=== PATIENT | male | born 1980 | race Caucasian/White ===

== ENCOUNTER 2022-09-14 01:39 | Inpatient (IN) | payer OTHER ==
--- NOTE | 2022-09-14 02:57 | EDPHYS ---
Physician Documentation [facility] Name: Moe Robertson Age: 41 yrs Sex: Male : 1980 Arrival Date: 09/14/2022 Time: 01:45 Bed 8 Private MD: Todd Higgins T ED Physician Raheem Chaudhari HPI: 09/14 02:38 This 41 yrs old Male presents to ER via Ambulatory with complaints of Back Pain, MUSCLE pm1 TENSION, Chest Tightness. 02:38 The patient or guardian reports chest pain that is located primarily in the anterior pm1 aspect of right upper chest, anterior aspect of left upper chest and mid-sternal area. The pain radiates to back. Associated signs and symptoms: Pertinent negatives: abdominal pain, dizziness, headache, nausea, shortness of breath, vomiting. The chest pain is described as Tightness and cramping. Duration: The patient or guardian reports a single episode, that is still ongoing, and worsening. Modifying factors: The symptoms are alleviated by nothing. the symptoms are aggravated by nothing. Severity of pain: in the emergency department the pain is actually worse. The patient has experienced similar episodes in the past, chronically, on and off since March of this year. The patient has been recently seen at an urgent care, today, for similar complaints, was given a prescription for pain medications, given steroid injection. Historical: - Allergies: 02:37 PENICILLINS; kd3 - Immunization history:: Adult Immunizations up to date. - Social history:: Smoking status: Patient reports the use of cigarette tobacco products, smokes one pack cigarettes per day. ROS: 02:38 Constitutional: Negative for fever, chills, and weight loss. pm1 02:38 Respiratory: Negative for shortness of breath, cough, wheezing, and pleuritic chest pain, Abdomen/GI: Negative for abdominal pain, nausea, vomiting, diarrhea, and constipation. 02:38 MS/Extremity: Negative for injury and deformity, Skin: Negative for injury, rash, and discoloration. 02:38 Neuro: Negative for headache, weakness, numbness, tingling, and seizure. 02:38 Cardiovascular: Positive for chest pain, Negative for edema. 02:38 Back: Positive for of the left trapezius and right trapezius pain. 02:38 All other systems are negative. Exam: 02:37 ECG was reviewed by the Attending Physician. pm1 02:38 Constitutional: This is a well developed, well nourished patient who is awake, alert, pm1 and in no acute distress. Head/Face: Normocephalic, atraumatic. 02:38 Back: No spinal tenderness. No costovertebral tenderness. Full range of motion. pm1 Skin: Warm, dry with normal turgor. Normal color with no rashes, no lesions, and no evidence of cellulitis. MS/ Extremity: Pulses equal, no cyanosis. Neurovascular intact. Full, normal range of motion. 02:38 Eyes: Exam is negative for acute changes, Periorbital structures: appear normal, Extraocular movements: no acute changes, Conjunctiva: no acute changes, no injection. 02:38 ENT: Exam is negative for acute changes, Mouth: no acute changes, Lips: normal, moist, Oral mucosa: normal, pink and intact, moist. 02:38 Cardiovascular: Exam negative for acute changes, Rate: tachycardic, actual rate is 131 bpm, Rhythm: regular, Pulses: no pulse deficits are appreciated, Heart sounds: normal, normal S1and S2. 02:38 Respiratory: Exam negative for acute changes, respiratory distress, shortness of breath, Breath sounds: are clear throughout. 02:38 Abdomen/GI: Inspection: obese Palpation: abdomen is soft and non-tender, in all quadrants. 02:38 Neuro: Exam negative for acute changes, Orientation: is normal, Mentation: is normal, Motor: is normal, moves all fours. Vital Signs: 02:35 BP 125 / 79; Pulse 127; Resp 18; Temp 98.1(O); Pulse Ox 100% on R/A; Weight 108.86 kg; kd3 Height 5 ft. 8 in. (172.72 cm); 03:22 BP 109 / 66; Pulse 118; Resp 17; Pulse Ox 98% on R/A; kd3 03:35 BP 113 / 84; Pulse 106; Resp 19; Pulse Ox 100% on R/A; kd3 06:26 BP 94 / 72; Pulse 102; Resp 20; Pulse Ox 94% on R/A; kd3 02:35 Body Mass Index 36.49 (108.86 kg, 172.72 cm) kd3 MDM: 02:19 Patient medically screened. [facility] 02:54 Data reviewed: vital signs. Data interpreted: Pulse oximetry: on room air is 100 %. pm1 Interpretation: normal. 02:54 ED course: ECG interpretation by Dr Chaudhari is 2:1 atrial flutter. Will admit the pm1 patient for tachycardia with new onset atrial flutter. 02:59 ED course: score = 0. Thrombolytic not given. pm1 03:31 ED course: Troponin returned back elevated will give the patient Lovenox and add pm1 diagnoses NSTEMI. Elevated troponin possibly a result of sustained tachycardia. 09/14 02:34 Order name: Basic Metabolic Panel; Complete Time: 03:30 pm1 09/14 02:34 Order name: CBC with Diff; Complete Time: 03:18 pm1 09/14 02:34 Order name: LFT's; Complete Time: 03:30 pm1 09/14 02:34 Order name: Magnesium; Complete Time: 03:30 pm1 09/14 02:34 Order name: NT PRO-BNP; Complete Time: 03:30 pm1 09/14 02:34 Order name: PT-INR; Complete Time: 03:18 pm1 09/14 02:34 Order name: Troponin HS; Complete Time: 03:30 pm1 09/14 02:34 Order name: UDS; Complete Time: 04:18 pm1 09/14 02:34 Order name: SARS RAPID; Complete Time: 03:42 pm1 09/14 02:43 Order name: TSH; Complete Time: 03:30 pm1 09/14 03:59 Order name: Urine Dipstick-Ancillary; Complete Time: 04:00 EDMI 09/14 09:10 Order name: Creatine Phosphokinase EDMI 09/14 09:10 Order name: CKMB Creatine Kinase MB EDMI 09/14 09:10 Order name: Troponin High Sensitivity EDMI 09/14 02:34 Order name: XRAY Chest (1 view) pm1 09/14 02:34 Order name: EKG; Complete Time: 02:35 pm1 09/14 02:34 Order name: Cardiac monitoring; Complete Time: 03:22 pm1 09/14 02:34 Order name: EKG - Nurse/Tech; Complete Time: 02:39 pm1 09/14 02:34 Order name: IV Saline Lock; Complete Time: 02:50 pm1 09/14 02:34 Order name: Labs collected and sent; Complete Time: 02:50 pm1 09/14 02:34 Order name: O2 Per Protocol; Complete Time: 02:39 pm1 09/14 02:34 Order name: O2 Sat Monitoring; Complete Time: 02:39 pm1 09/14 09:10 Order name: Lipid Profile EDMS EC:37 Rate is 131 beats/min. Rhythm is regular, A flutter with No ectopy. QRS [place] is Normal. pm1 NE interval is normal. QRS interval is normal. QT interval is normal. No Q waves. T waves are Normal. No ST changes noted. Clinical impression: Atrial Flutter. Administered Medications: 03:22 Drug: NS 0.9% 1000 ml Route: IV; Rate: 1000 ml; Site: right antecubital; kd3 06:27 Follow up: Response: No adverse reaction; IV Status: Completed infusion kd3 03:22 Drug: Aspirin 325 mg Route: PO; kd3 06:27 Follow up: Response: No adverse reaction kd3 03:26 Drug: Metoprolol 5 mg Route: IVP; Site: right antecubital; kd3 06:27 Follow up: Response: No adverse reaction kd3 04:39 Drug: Lovenox (enoxaparin) 1 mg/kg Route: Sub-Q; Site: left lower abdomen; kd3 06:27 Follow up: Response: No adverse reaction kd3 04:39 Drug: Metoprolol TARTRATE 50 mg Route: PO; kd3 06:27 Follow up: Response: No adverse reaction kd3 04:47 Drug: morphine 2 mg Route: IVP; Infused Over: 4 mins; Site: right antecubital; kd3 06:26 Follow up: Response: No adverse reaction; Pain is decreased kd3 04:47 Drug: Zofran (Ondansetron) 4 mg Route: IVP; Site: right antecubital; kd3 06:26 Follow up: Response: No adverse reaction; Nausea is decreased kd3 Disposition Summary: 09/14/22 02:56 Hospitalization Ordered Provider: Kumar Heller pm1 Condition: Stable pm1 Problem: new pm1 Symptoms: have improved pm1 Bed/Room Type: Standard pm1 Hospitalization Status: Inpatient Admission(09/14/22 03:32) pm1 Location: Telemetry/MedSur (Inpatient)(09/14/22 12:29) eb Room Assignment: 408(09/14/22 12:29) eb Diagnosis - Unspecified atrial flutter - new onset pm1 - NSTEMI pm1 Forms: - Medication Reconciliation Form pm1 - SBAR form pm1 Signatures: Dispatcher [employer] EDMS Randi Hammer RN RN Raheem Saini MD MD cha Marinas, Patrick, BARREL PAINTER BARREL PAINTER pm1 Kamla Lujan Kyli, RN RN kd3 Lilia Frank PA-C PACharles sb4 Corrections: (The following items were deleted from the chart) 02:38 02:37 Allergies: No Known Allergies; kd3 kd3 03:32 02:56 Observation pm1 pm1 03:32 02:56 Telemetry/MedSurg (observation) pm1 pm1 03:32 02:56 pm1 pm1 04:02 03:32 Telemetry/MedSurg (Inpatient) pm1 mw 04:02 03:32 pm1 mw 12:29 04:02 [facility] ER HOLD mw eb 12:29 04:02 ERHOLD- mw eb
--- NOTE | 2022-09-14 02:57 | ER ---
Nurse's Notes [facility] Name: Moe Robertson Age: 41 yrs Sex: Male : 1980 Arrival Date: 09/14/2022 Time: 01:45 Bed 8 Private MD: Todd Higgins T Diagnosis: Unspecified atrial flutter-new onset;NSTEMI Presentation: 09/14 02:35 Chief complaint: Patient states: I went to the urgent care this morning with tightness kd3 in my shoulder blades and in my chest. They sent me home after giving me a steroid shot and some muscle relaxers. I took a nap and woke up and all the tightness is still there. Coronavirus screen: Vaccine status: Patient reports receiving the 2nd dose of the covid vaccine. Ebola Screen: No symptoms or risks identified at this time. Initial Sepsis Screen: Does the patient meet any 2 criteria? No. Patient's initial sepsis screen is negative. Does the patient have a suspected source of infection? No. Patient's initial sepsis screen is negative. Risk Assessment: Do you want to hurt yourself or someone else? Patient reports no desire to harm self or others. Onset of symptoms was September 14, 2022. 02:35 Method Of Arrival: Ambulatory kd3 02:35 Acuity: JONO 3 kd3 Triage Assessment: 02:37 General: Appears in no apparent distress. Behavior is calm, cooperative. Pain: kd3 Complains of pain in thoracic area and chest. Neuro: Level of Consciousness is awake, alert, obeys commands, Oriented to person, place, time, situation. Cardiovascular: Patient's skin is warm and dry. Respiratory: Airway is patent Trachea midline Respiratory effort is even, unlabored, Respiratory pattern is regular, symmetrical. Musculoskeletal: Circulation, motion, and sensation intact. Historical: - Allergies: 02:37 PENICILLINS; kd3 - Immunization history:: Adult Immunizations up to date. - Social history:: Smoking status: Patient reports the use of cigarette tobacco products, smokes one pack cigarettes per day. Screenin:25 [facility] ED Fall Risk Assessment (Adult) History of falling in the last 3 months, kd3 including since admission No falls in past 3 months (0 pts) Confusion or Disorientation No (0 pts) Intoxicated or Sedated No (0 pts) Impaired Gait No (0 pts) Mobility Assist Device Used No (0 pt) Altered Elimination No (0 pt) Score/Fall Risk Level 0 - 2 = Low Risk. Humtommiey Dumpty Scale Fall Assessment Tool (age< 18yrs) Age 13 years and above (1 pt) Gender Male (2 pts) Diagnosis Other diagnosis (1 pt) Cognitive Impairments Oriented to own ability (1 pt) Environmental Factors Outpatient area (1 pt) Response to Surgery/Sedation/Anesthesia More than 48 hours/ None (1 pt) Medication Usage Other medications/ None (1 pt) Fall Risk Score/ Level Low Fall Risk: </= 11 points. Abuse screen: Denies threats or abuse. Denies injuries from another. Nutritional screening: No deficits noted. Tuberculosis screening: No symptoms or risk factors identified. Fall Risk No fall in past 12 months (0 pts). No secondary diagnosis (0 pts). IV access (20 points). Ambulatory Aid- None/Bed Rest/Nurse Assist (0 pts). Gait- Normal/Bed Rest/Wheelchair (0 pts) Mental Status- Oriented to own ability (0 pts). Total Shay Fall Scale indicates No Risk (0-24 pts). Assessment: 02:38 Neuro: Level of Consciousness is awake, alert, obeys commands, Oriented to person, kd3 place, time, situation. Vital Signs: 02:35 BP 125 / 79; Pulse 127; Resp 18; Temp 98.1(O); Pulse Ox 100% on R/A; Weight 108.86 kg; kd3 Height 5 ft. 8 in. (172.72 cm); 03:22 BP 109 / 66; Pulse 118; Resp 17; Pulse Ox 98% on R/A; kd3 03:35 BP 113 / 84; Pulse 106; Resp 19; Pulse Ox 100% on R/A; kd3 06:26 BP 94 / 72; Pulse 102; Resp 20; Pulse Ox 94% on R/A; kd3 02:35 Body Mass Index 36.49 (108.86 kg, 172.72 cm) kd3 ED Course: 01:45 Patient arrived in ED. es 01:46 Todd Higgins MD is Private Physician. es 02:18 Henrique Roman NP is PHCP. pm1 02:18 Raheem Chaudhari MD is Attending Physician. pm1 02:35 Lorena Mac, KATLIN is Primary Nurse. kd3 02:37 Triage completed. kd3 02:38 Arm band placed on right wrist. kd3 02:50 Inserted saline lock: 20 gauge in right antecubital area, using aseptic technique. ds4 Blood collected. 02:56 Kumar Heller is Hospitalizing Provider. pm1 03:13 XRAY Chest (1 view) In Process Unspecified. EDMS 03:22 SARS RAPID Sent. kd3 06:25 Patient has correct armband on for positive identification. kd3 08:02 No provider procedures requiring assistance completed. Patient admitted, IV remains in iw place. Administered Medications: 03:22 Drug: NS 0.9% 1000 ml Route: IV; Rate: 1000 ml; Site: right antecubital; kd3 06:27 Follow up: Response: No adverse reaction; IV Status: Completed infusion kd3 03:22 Drug: Aspirin 325 mg Route: PO; kd3 06:27 Follow up: Response: No adverse reaction kd3 03:26 Drug: Metoprolol 5 mg Route: IVP; Site: right antecubital; kd3 06:27 Follow up: Response: No adverse reaction kd3 04:39 Drug: Lovenox (enoxaparin) 1 mg/kg Route: Sub-Q; Site: left lower abdomen; kd3 06:27 Follow up: Response: No adverse reaction kd3 04:39 Drug: Metoprolol TARTRATE 50 mg Route: PO; kd3 06:27 Follow up: Response: No adverse reaction kd3 04:47 Drug: morphine 2 mg Route: IVP; Infused Over: 4 mins; Site: right antecubital; kd3 06:26 Follow up: Response: No adverse reaction; Pain is decreased kd3 04:47 Drug: Zofran (Ondansetron) 4 mg Route: IVP; Site: right antecubital; kd3 06:26 Follow up: Response: No adverse reaction; Nausea is decreased kd3 Medication: 06:26 VIS not applicable for this client. kd3 Outcome: 02:56 Decision to Hospitalize by Provider. pm1 08:02 Admitted to ER Hold. [facility]. iw 08:02 Condition: stable iw 13:35 Patient left the ED. jl7 Signatures: Dispatcher [employer] Romana Chaparro Irene, RN RN iw Chris Roberts ds4 Henrique Roman, ANALYST SALES ANALYST SALES pm1 Bobby Shay, RN RN jl7 Lorena Mac RN RN kd3 Corrections: (The following items were deleted from the chart) 02:38 02:37 Allergies: No Known Allergies; kd3 kd3
[2022-09-14 03:07] LABS: Protime INR 0.99
[2022-09-14 03:08] LABS: Absolute Lymphocytes (CBC) 1.2 K/uL (0.7-4.9); Hematocrit 45.1 % (39.6-49.0); Lymphocytes % 6.9 % (15.3-44.8); MCV 89.2 fL (80-100); MPV 8.3 fL (7.6-11.3); RBC Red Blood Cell Count 5.05 M/uL (4.33-5.43)
[2022-09-14] MEDS ORDERED: ASPIRIN 81 MG CHEWABLE TABLET ONE (03:16)
[2022-09-14] MEDS ORDERED: NA CHLORIDE 0.9% 1,000 ML ONE ×2 (03:17→06:37)
[2022-09-14] MEDS ORDERED: METOPROLOL TARTRATE 5 MG/5 ML INJ IV ONE (03:17)
[2022-09-14 03:24] LABS: Albumin 4.4 g/dL (3.4-5.0); Bilirubin Direct 0.1 mg/dL (0-0.2); Bilirubin Total 0.3 mg/dL (0.2-1.0); Magnesium 2.1 mg/dL (1.6-2.4); Potassium 4.2 mmol/L (3.5-5.1); Protein, Total 7.9 g/dL (6.4-8.2)
[2022-09-14 03:28] LABS: Troponin High Sensitivity 4842.3 pg/mL (<58.9)
[2022-09-14 03:38] LABS: SARS-CoV-2 Antigen Rapid Res Negative (Negative)
--- NOTE | 2022-09-14 03:49 | P.HP ---
Certification for Inpatient Patient admitted to: Inpatient With expected LOS: <2 Midnights Patient will require the following post-hospital care: None Practitioner: I am a practitioner with admitting privileges, knowledge of patient current condition, hospital course, and medical plan of care. Services: Services provided to patient in accordance with Admission requirements found in Title 42 Section 412.3 of the Code of Federal Regulations Patient History Date of Service: 09/14/22 Primary Care Provider: Gisela Reason for admission: A-Flutter, Elevated Troponin History of Present Illness: Patient is a 41-year-old male with no past medical history who presented to the ED with complaints of back pain, neck pain, and chest tightness. Patient reports that he has been experiencing these symptoms on and off for about 5 months now. He states that it was worse today so he went to urgent care. They gave him a steroid shot and prescriptions for NSAIDs and muscle relaxers. His pain persisted and he came to the ED for further evaluation. He was noted to be in a-flutter 2-1 with heart rate in the 130s. his troponin came back elevated at 4800. BNP 1200. TSH and UDS negative. He denies excessive caffeine use. His chest x-ray showed "Prominent interstitial markings which may indicate mild interstitial edema. No consolidation." He was given Lopressor in the ED with improvement in heart rate and conversion to sinus tach. Patient is admitted for further management. Home medications list reviewed: Yes - Past Medical/Surgical History Diabetic: No -: Migraines Past Surgical History: Patient denies surgical history Psychosocial/ Personal History: Patient works at a plant. - Family History Mother -: Cancer - Social History Smoking Status: Current every day smoker Alcohol use: No CD- Drugs: No Caffeine use: Yes Place of Residence: Home Review of Systems Cardiovascular: Other (Chest Tightness) Musculoskeletal: Neck Pain, Back Pain Physical Examination - Vital Signs Temperature: 98.1 F Blood Pressure: 114/75 Pulse: 107 Respirations: 19 Pulse Ox (%): 100 (room air) - Physical Exam General: Alert, In no apparent distress HEENT: Atraumatic, PERRLA, EOMI, Sclerae nonicteric Neck: Supple, 2+ carotid pulse no bruit Respiratory: Clear to auscultation bilaterally, Normal air movement Cardiovascular: No edema, Irregular heart rate/rhythm Gastrointestinal: Normal bowel sounds, No tenderness Musculoskeletal: No tenderness Integumentary: No rashes Neurological: Normal speech, Normal strength at 5/5 x4 extr, Normal affect - Studies Laboratory Data (last 24 hrs) 09/14/22 02:46: PT 10.9, INR 0.99 09/14/22 02:46: WBC 17.60 H, Hgb 15.3, Hct 45.1, Plt Count 214 09/14/22 02:46: Sodium 136, Potassium 4.2, BUN 15, Creatinine 1.24, Glucose 249 H, Magnesium 2.1, Total Bilirubin 0.3, AST 70 H, ALT 47, Alkaline Phosphatase 101 Assessment and Plan - Problems (Diagnosis) (1) Atrial flutter Current Visit: Yes Status: Acute Qualifiers: Atrial flutter type: unspecified Qualified Code(s): I48.92 - Unspecified atrial flutter (2) Elevated troponin Current Visit: Yes Status: Acute (3) Tobacco abuse Current Visit: Yes Status: Chronic - Plan Patient is admitted for further management of new onset a flutter and elevated troponin. EKG after 5 mg IV lopressor showing sinus tach. Was originally showing 2:1 af lutter. Cardiology consulted. Echo ordered. We will keep patient n.p.o. in case for cardiac intervention. Initial troponin elevated at 4800, possibly secondary to the sustained tachycardia. Will trend serial cardiac enzymes. Received 324 mgaspirin and therapeutic lovenox in the ED. Leukocytosis and hyperglycemia secondary to the steroid shot he received earlier today. Metoprolol as needed for rate control. Continue IV fluids. Discharge Plan: Home Plan to discharge in: 48 Hours - Advance Directives Does patient have a Living Will: No Does patient have a Durable POA for Healthcare: No - Code Status/Comfort Care Code Status Assessed: Yes Code Status: Full Code Physician Review: Patient Assessed, Agree with Above Assessment and Plan Critical Care: No Time Spent Managing Pts Care (In Minutes): 50
[2022-09-14 03:59] LABS: Urine Blood Negative (Negative); Urine Glucose Trace (Negative); Urine Protein Negative (Negative); Urine Specific Gravity 1.015 (1.005-1.030)
[2022-09-14 04:15] LABS: Barbiturates NEGATIVE (NEGATIVE); Benzodiazepines NEGATIVE (NEGATIVE); Cocaine NEGATIVE (NEGATIVE); METHAMPHETAM NEGATIVE (NEGATIVE); Methadone NEGATIVE (NEGATIVE); Opiates NEGATIVE (NEGATIVE); Phencyclidine NEGATIVE (NEGATIVE); THC Cannibis NEGATIVE (NEGATIVE)
[2022-09-14] MEDS ORDERED: ENOXAPARIN 100 MG/ML SYR SQ ONE (04:36)
[2022-09-14] MEDS ORDERED: METOPROLOL XL 50 MG TAB PO ONE (04:36)
[2022-09-14] MEDS ORDERED: MORPHINE 2 MG/ML SYR ONE (04:42)
[2022-09-14] MEDS ORDERED: ONDANSETRON 4 MG/2 ML VIAL ONE (04:42)
[2022-09-14] MEDS ORDERED: NA CHLORIDE 0.9% 1,000 ML IV SCH (06:30)
[2022-09-14] MEDS ORDERED: ACETAMINOPHEN 500 MG TAB PO PRN (06:30)
[2022-09-14 06:53] VITALS: BMI 36.3
[2022-09-14 08:41] LABS: CKMB Creatine Kinase MB 71.1 ng/mL (1.0-3.6)
[2022-09-14] MEDS: ASPIRIN EC 81 MG TAB PO SCH (09:00)
[2022-09-14 09:10] LABS: Troponin High Sensitivity 13161.7 pg/mL (<58.9)
[2022-09-14] MEDS ORDERED: ASPIRIN EC 81 MG TAB PO ONE (09:46)
[2022-09-14] MEDS ORDERED: ONDANSETRON 4 MG/2 ML VIAL IV PRN (11:00)
[2022-09-14] MEDS ORDERED: HEPA 1000U/500MLS 2,000 UNIT/1,000 ML BAG IV ONE (14:01)
[2022-09-14] MEDS ORDERED: VERAPAMIL HCL 10 MG/4 ML VIAL IV ONE (14:02)
[2022-09-14] MEDS ORDERED: FENTANYL CITR 100 MCG/2 ML ONE (14:02)
[2022-09-14] MEDS ORDERED: LIDOCAINE 1% 20 ML MDV ONE (14:02)
[2022-09-14] MEDS ORDERED: MIDAZOLAM HCL 2 MG/2 ML INJ ONE (14:02)
[2022-09-14] MEDS ORDERED: HEPARIN 10,000 UNIT/10 ML VIAL IV ONE ×2 (14:03→15:19)
--- NOTE | 2022-09-14 14:03 | ECHO ---
HEIGHT: 5 ft 8 in WEIGHT: 239 lb 15.923 oz DATE OF STUDY: 09/14/[address]: Lilia Frank 2-DIMENSIONAL: YES M.MODE: YES DOPPLER: YES COLOR FLOW: YES TDS: PORTABLE: YES DEFINITY: BUBBLE STUDY: DIAGNOSIS: ATRIAL FLUTTER CARDIAC HISTORY: CATHERIZATION: SURGERY: PROSTHETIC VALVE: PACEMAKER: MEASUREMENTS (cm) DIASTOLIC (NORMALS) SYSTOLIC (NORMALS) IVSd 1.2 (0.6-1.2) LA Diam 3.8 (1.9-4.0) LVEF 37% LVIDd 4.6 (3.5-5.7) LVIDs 3.8 (2.0-3.5) %FS 17% LVPWd 1.2 (0.6-1.2) Ao Diam 3.1 (2.0-3.7) 2 DIMENSIONAL ASSESSMENT: RIGHT ATRIUM: NORMAL LEFT ATRIUM: NORMAL RIGHT VENTRICLE: NORMAL LEFT VENTRICLE: EJECTION FRACTION IS DEPRESSED TRICUSPID VALVE: NORMAL MITRAL VALVE: MILD MITRAL REGURGITATION PULMONIC VALVE: NORMAL AORTIC VALVE: NORMAL PERICARDIAL EFFUSION: NONE AORTIC ROOT: NORMAL LEFT VENTRICULAR WALL MOTION: ANTERIOR/ APICAL HYPOKINESIS DOPPLER/COLOR FLOW: SEE BELOW COMMENTS: 1. MODERATELY DEPRESSED LEFT VENTRICULAR EJECTION FRACTION 30-35% 2. ANTERIOR/ APICAL HYPOKINESIS 3. MILD MITRAL REGURGITATION TECHNOLOGIST: LALIT MATOS
[2022-09-14] MEDS ORDERED: HEPARIN 5000 UNIT/ML 1 ML VIAL ONE (14:04)
[2022-09-14] MEDS ORDERED: NITROGLYCERIN 100 MCG/ML SYR (for cath lab use only) IV ONE (14:04)
[2022-09-14] MEDS ORDERED: ATROPINE SULF 1 MG/10 ML SYR IV ONE (14:04)
--- NOTE | 2022-09-14 14:17 | P.PN ---
Date of Service: 09/14/22 Patient seen and examined. His heart rate has improved. He denies any chest pain or shortness of breath. He is not hypoxic. Troponin trended up to 14,000. Diagnosis: Atrial flutter NSTEMI LV dysfunction. Hyperlipidemia Hyperglycemia. Plan: Patient seen by cardiology who is planning cardiac catheterization today. On aspirin. BP is low to tolerate beta-navdeep or KARTIK inhibitor for now Statin Further management pending cardiac cath result.
[2022-09-14] MEDS ORDERED: TICAGRELOR 90 MG TABLET PO ONE (14:21)
[2022-09-14] MEDS ORDERED: CLOPIDOGREL 75 MG TABLET ONE (14:22)
[2022-09-14] MEDS ORDERED: NA CHLORIDE 0.9% 0 ML ONE (14:22)
[2022-09-14] MEDS ORDERED: HEPA 1000U/500MLS 1,000 UNIT/500 ML BAG IV ONE (15:11)
[2022-09-14] MEDS ORDERED: FUROSEMIDE 20 MG/ 2ML VIAL ONE (16:12)
[2022-09-14] MEDS ORDERED: ENOXAPARIN 100 MG/ML SYR SQ SCH (17:00)
--- NOTE | 2022-09-14 18:13 | RAD REPORT ---
EXAM DESCRIPTION: RAD - Chest Single View - 09/14/2022 3:11 am CLINICAL HISTORY: The patient is 41 years old and is Male; CHEST PAIN TECHNIQUE: Frontal view of the chest. COMPARISON: No relevant prior studies available. FINDINGS: Lungs: Prominent interstitial markings which may indicate mild interstitial edema. No co nsolidation. Pleural space: Unremarkable. No pneumothorax. Heart: Unremarkable. Mediastinum: Unremarkable. Bones/joints: Unremarkable. IMPRESSION: Prominent interstitial markings which may indicate mild interstitial edema. No consolida tion. Electronically signed by: Adonis Izaguirre MD 09/14/2022 3:27 AM LAW REPORTER Due to temporary technical issues with the PACS/Fluency reporting system, reports are being signed by the in house radiologists without review as a courtesy to insure prompt reporting. The interpreting radiologist is fully responsible for the content of the report.
--- NOTE | 2022-09-14 19:45 | CON ---
Date of Consultation: 09/14/2022 Reason For Consultation: Non-ST elevation myocardial infarction. History Of Present Illness: A 41-year-old male, no known medical history, presented with pain that s tarted between his shoulder and then moved to his chest, heaviness on and off and he has been having this chest pain for some time. However, he thought it was muscles and so his primary care physician has given steroids and NSAIDs and he is not doing any better, so sent to the emergency room. Troponi n was elevated. Past Medical History: None. Medications: Refer to reconciliation sheet for detailed list. Allergies: PENICILLIN. Family History: No premature coronary artery disease or cancer. Social History: He is a smoker, 1 pack per day. Does not drink or use any drugs. Review of Systems: All systems reviewed, are negative except for what is mentioned in HPI. Physical Examination: Vital Signs: Reviewed. Head and Neck: Pupils are equal, reactive to light. Intact eye movements. No JVD. No cervical lym phadenopathy. Neck: Supple. Thyroid is not enlarged. Lungs: Clear to auscultation bilaterally. No rhonchi, wheezing, crackles. No accessory muscle use. HEART: Regular rate and rhythm. No extra sounds. Abdomen: Soft, nontender. Bowel sounds positive. No organomegaly. No masses or hernia. No rigidi ty or rebound. Extremities: No edema, clubbing, cyanosis. Intact pulses. SKIN: No rash noted. Neurologic: Alert, awake, oriented x3. No acute focal deficits appreciated. Investigations: On echo, EF is 35% with anterior wall hypokinesis and his troponin peaked so far at 13,000 level. BUN 15, creatinine 1.24, and hemoglobin is 15.3. Assessment/recommendation: 1.Acute non-ST elevation myocardial infarction. He is n.p.o. I will take him to the laboratory mechanic helper now a nd do coronary angiogram. Further plan accordingly. 2.Atrial flutter/fibrillation, converted on metoprolol. To resume metoprolol 25 mg by mouth twice a day and continue baby aspirin 81 mg daily. 3.Severe systolic heart failure due to heart attack. Apparently, this patient has been having chest pain on and off for few months, so this could be chronic ischemia versus chronic total occlusion of the LAD. Coronary angiogram today to further evaluate. SR/MODL Voice ID: [id number] Report ID: [id number]
--- NOTE | 2022-09-14 19:52 | OP ---
Date of Procedure: 09/14/2022 Surgeon: GABRIEL WILDER Procedures Performed: 1.Selective coronary angiogram. 2.Left heart catheterization. 3.Percutaneous coronary intervention of severe [id number] right coronary artery 99% stenosis, whi ch is the culprit. Used the 3.0 x 32 mm Synergy drug-eluting stent. 4.Percutaneous coronary intervention of proximal severe right coronary artery stenosis, used 3.5 x 1 6 mm Synergy drug-eluting stent. 5.A failed attempt percutaneous coronary intervention of proximal left anterior descending artery, w hich is a chronic total occlusion. Indication: Non-ST elevation myocardial infarction. Access: 1.Right radial artery 6-Slovenian closed with TR band. 2.Right femoral artery 6-Slovenian closed with 6-Slovenian Angio-Seal. Complications: None. Estimated Blood Loss: Bleeding less than 20 mL. Total contrast used was 150 mL. Description Of Procedure: After risks, benefits, and alternatives were explained, patient agreed to proceed and signed informed consent. Patient was brought to the cardiac catheterization laboratory a nd prepped and draped in usual sterile fashion. Then I accessed right radial artery using pediatric micropuncture kit, placed 6-Slovenian Slender sheath and took 5-Slovenian Yeaddiss 4 catheter into the aortic root, engaged left main and right coronary artery, took standard views and the catheter was pushed in to the LV over the wire and measured the LVEDP. Pullback did not record any gradient. There was sig nificant spasm of the radial artery, so I took the catheter and wire out and then prepped the groin a nd obtained a right femoral artery access using micropuncture kit under fluoroscopy and an ultrasound guidance and placed 6-Slovenian Grenola sheath. Then, I took a 6-Slovenian EBU 3.5 guide into the aortic root, engaged left main and tried to go through the CHILD DEVELOPMENT DIRECTOR of the proximal LAD with Runthrough and the Fielder XT wire and all that is done after giving systemic heparin to assure ACT level above 250; how ever, could not cross the stenosis and then I exchanged for 6-Slovenian JR4 guide, engaged the RCA and t ook a short Runthrough wire into the RCA, crossing the restenosis and placed it distally. The distal lesion which was the culprit was 99%. It responded very well to balloon angioplasty and expanded ve ry well. Then there was a significant diffuse disease in the mid section also so I covered both lesi ons using a 3.0 x 32 mm Synergy drug-eluting stent and then there was significant haziness in the pro ximal RCA with stenosis of 70%. I placed a 3.5 x 16 mm Synergy drug-eluting stent, cardiac stenting with good results. Coronary angiogram was satisfactory and then removed the guide and sheath and david suzanna a 6-Slovenian Angio-Seal for closure with good hemostasis. Findings: 1.Left main was large and normal. 2.LAD: Proximal CHILD DEVELOPMENT DIRECTOR 100% occluded. There are some faint collaterals from the from left circumflex. 3.Left circumflex: Very large and codominant circulation. OM is very large and free of disease. G marianna collaterals to the LAD. 4.RCA: Proximal 70% stenosis status post successful besides above. Then mid to distal there is 80% and then 99% stenosis, which is the culprit for the HI, status post successful PCI as above. 5.Elevated LVEDP at now 29 mmHg. Conclusion: 1.Severe right coronary artery stenosis, which is the culprit, status post successful percutaneous c oronary intervention as above. 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 The left anterior descending artery, however, gets faint collaterals from the circumflex and from the right coronary artery. 3.Elevated left ventricular end-diastolic pressure. Plan: 1.Continue Brilinta, aspirin, and high-dose statin. 2.IV diuretics and we will reassess the LAD at a later time. 3.Plan for re-attempt LAD CHILD DEVELOPMENT DIRECTOR intervention later on. However, we will evaluate with echocardiogram first to make sure that his EF has improved with the current interv ention that was done. SR/MODL Voice ID: [id number] Report ID: [id number]
[2022-09-14] MEDS: TICAGRELOR 90 MG TABLET PO SCH (20:33)
[2022-09-14] MEDS ORDERED: ATORVASTATIN 80 MG TAB PO SCH (21:00)
[2022-09-15 04:19] LABS: Absolute Lymphocytes (CBC) 3.4 K/uL (0.7-4.9); Hematocrit 42.6 % (39.6-49.0); Lymphocytes % 18.5 % (15.3-44.8); MCV 89.4 fL (80-100); MPV 8.3 fL (7.6-11.3); RBC Red Blood Cell Count 4.76 M/uL (4.33-5.43)
[2022-09-15 04:31] LABS: Phosphorus 3.3 mg/dL (2.5-4.9); Potassium 3.2 mmol/L (3.5-5.1)
[2022-09-15] MEDS: TICAGRELOR 90 MG TABLET PO SCH (09:30)
[2022-09-15] MEDS: POTASSIUM CL SA 10 MEQ TAB PO SCH ×2 (09:30→12:00)
[2022-09-15] MEDS: ASPIRIN EC 81 MG TAB PO SCH (09:30)
[2022-09-15] MEDS ORDERED: CYCLOBENZAPRINE 10 MG TAB PO PRN (12:59)
[2022-09-15] MEDS ORDERED: TOPIRAMATE 100 MG PO SCH (13:00)
[2022-09-15] MEDS ORDERED: allopurinoL 300 MG TAB PO SCH (13:00)
--- NOTE | 2022-09-15 13:30 | P.DS ---
Admission Date: 09/14/22 Discharge Date: 09/15/22 Primary Care Provider: Gisela Disposition: ROUTINE DISCHARGE Discharge Condition: FAIR Reason for Admission: A-Flutter, Elevated Troponin - Problems (1) NSTEMI (non-ST elevated myocardial infarction) Status: Acute (2) CAD (coronary artery disease), [place] coronary artery Status: Acute (3) Atrial flutter Status: Acute Qualifiers: Atrial flutter type: unspecified Qualified Code(s): I48.92 - Unspecified atrial flutter Brief History of Present Illness: Patient is a 41-year-old male with no past medical history who presented to the ED with complaints of back pain, neck pain, and chest tightness. Patient reported that he has been experiencing these symptoms on and off for about 5 months now. He stated that it was worse today so he went to urgent care. They gave him a steroid shot and prescriptions for NSAIDs and muscle relaxers. His pain persisted and he came to the ED for further evaluation. He was noted to be in a-flutter 2-1 with heart rate in the 130s. his troponin came back elevated at 4800. BNP 1200. TSH and UDS negative. His chest x-ray showed "Prominent interstitial markings which may indicate mild interstitial edema. No consolidation." He was given Lopressor in the ED with improvement in heart rate and conversion to sinus tach. Patient was admitted for further management. Hospital Course: Patient admitted to the medical floor and treated for NSTEMI with full dose Lovenox, and aspirin. His blood pressure was low so we were not able to treat him with beta-navdeep. Echocardiogram showed EF of 30 to 35%. Patient seen and evaluated by cardiology Dr. Wilson who performed cardiac catheterization, his RCA was stented. Patient also noted to have severe LAD occlusion which according to cardiology appeared chronic and could not be stented. Patient monitored inpatient after cardiac catheterization. He was treated with IV Lasix for acute CHF. Patient request to go home today. He was seen by cardiology today and deemed stable for discharge. Vital Signs/Physical Exam: Temp Pulse Resp BP Pulse Ox 98 F 91 H 19 100/55 L 96 09/15/22 12:00 09/15/22 12:00 09/15/22 12:00 09/15/22 12:00 09/15/22 12:00 General: Alert, In no apparent distress, Oriented x3 HEENT: Mucous membr. moist/pink Neck: Supple, JVD not distended Respiratory: Clear to auscultation bilaterally, Normal air movement Cardiovascular: Regular rate/rhythm, Normal S1 S2 Gastrointestinal: Soft and benign, Non-distended Musculoskeletal: No swelling Integumentary: No rashes Neurological: Normal strength at 5/5 x4 extr Laboratory Data at Discharge: WBC 18.50 K/uL (4.3-10.9) H 09/15/22 03:42 Hgb 14.4 g/dL (13.6-17.9) 09/15/22 03:42 Hct 42.6 % (39.6-49.0) 09/15/22 03:42 Plt Count 196 K/uL (152-406) 09/15/22 03:42 PT 10.9 SECONDS (9.5-12.5) 09/14/22 02:46 INR 0.99 09/14/22 02:46 Sodium 139 mmol/L (136-145) 09/15/22 03:42 Potassium 3.2 mmol/L (3.5-5.1) L D 09/15/22 03:42 BUN 19 mg/dL (7-18) H 09/15/22 03:42 Creatinine 1.01 mg/dL (0.70-1.30) 09/15/22 03:42 Glucose 115 mg/dL (74-106) H 09/15/22 03:42 Phosphorus 3.3 mg/dL (2.5-4.9) 09/15/22 03:42 Magnesium 2.0 mg/dL (1.6-2.4) 09/15/22 03:42 Total Bilirubin 0.3 mg/dL (0.2-1.0) 09/14/22 02:46 AST 70 U/L (15-37) H 09/14/22 02:46 ALT 47 U/L (16-61) 09/14/22 02:46 Alkaline Phosphatase 101 U/L (45-117) 09/14/22 02:46 Triglycerides 290 mg/dL (<150) H 09/14/22 07:36 Cholesterol 273 mg/dL (<200) H 09/14/22 07:36 HDL Cholesterol 32 mg/dL (40-60) L 09/14/22 07:36 Cholesterol/HDL Ratio 8.53 12/16/22 07:36 Home Medications: Allopurinol 1 tab PO DAILY 09/14/22 Cyclobenzaprine [Flexeril*] 1 tab PO TID PRN 09/14/22 Meloxicam 1 tab PO DAILY 09/14/22 Topiramate [Trokendi Xr] 1 cap PO DAILY 09/14/22 Aspirin [Aspirin EC 81 MG] 81 mg PO DAILY #30 tab 09/15/22 Atorvastatin Calcium [Lipitor] 80 mg PO BEDTIME #30 tab 09/15/22 Ticagrelor [Brilinta*] 90 mg PO BID #60 tab 09/15/22 New Medications: Aspirin [Aspirin EC 81 MG] 81 mg PO DAILY #30 tab Ticagrelor [Brilinta*] 90 mg PO BID #60 tab Atorvastatin Calcium [Lipitor] 80 mg PO BEDTIME #30 tab Diet: AHA Activity: Ad az Followup: Todd Higgins MD [Primary Care Provider] - 1 Week (Please call to schedule an appointment. ) Chico Wilson MD [ACTIVE - CAN ADMIT] - 1 Week (Please call to schedule an appointment. ) Time spent managing pt's care (in minutes): 35
[2022-09-15] MEDS: FUROSEMIDE 40 MG/4 ML VIAL IV SCH ×2 (13:34→14:35)
[2022-09-15 16:27] VITALS: BP 112/67; TEMP 97.6
[2022-09-15 18:10] VITALS: O2SAT 95
--- NOTE | 2022-09-16 17:04 | PN ---
Date of Progress Note: 09/16/2022 Subjective: Seen by bedside. Symptoms completely resolved. Chest discomfort completely resolved. Feels much better. No shortness of breath. Review of Systems: No chest pain, shortness of breath, orthopnea, cough. No nausea, vomiting, diarrhea. No abdominal p ain. No dysuria, polyuria, or urinary urgency. All other systems reviewed and are negative. Physical Examination: Vital Signs: Reviewed. Head and Neck: Pupils are equal, reactive to light. Intact eye movements. No JVD. No cervical lym phadenopathy. Neck is supple. Thyroid is not enlarged. Lungs: Clear to auscultation bilaterally. No rhonchi, wheezing, or crackles. No accessory muscle u se. Heart: Regular rate and rhythm. No extra sounds. Abdomen: Soft, nontender. Bowel sounds positive. No organomegaly. No masses or hernia. No rigidi ty or rebound. Extremities: No edema, clubbing, or cyanosis. Intact pulses. Skin: No rash. Neurologic: Alert, awake, oriented x3. No acute focal deficits appreciated. Investigations: Labs were reviewed. Assessment And Recommendations: 1.Non-ST elevation myocardial infarction. Culprit was the RCA, status post successful PCI. He has chronic total occlusion of the proximal LAD from probably heart attack that he had in the past few mo nths with resultant significant systolic heart failure. It seems like there are faint collaterals to it, so this potentially is a target for intervention; however, the patient has no further chest pain . Now, the culprit artery was treated and I recommend outpatient attempt of [facility] PCI in [place]. I e xplained to the patient and he understands to make a followup with me upon discharge to arrange for t hat. Upon discharge, please make sure the patient is on aspirin, Brilinta, and high-dose statin. 2.Systolic heart failure, significant due to multiple heart attacks that he had in the past that wer e untreated as the patient did not seek medical attention. Recommend continue beta-navdeep and plan for to start Entresto on outpatient basis. Follow up with me within 2-3 weeks post discharge. Stric t low-salt diet is recommended. SR/MODL Voice ID: [id number] Report ID: [id number]
--- NOTE | 2022-09-19 14:05 | EKG ---
Test Date: 2022-09-14 Test Time: 02:29:21 Analytics Leader: DAJUAN MEASUREMENT RESULTS: Intervals: Rate: 131 GA: 146 QRSD: 98 QT: 318 QTc: 469 [place]: P: 63 GA: 146 QRS: 61 T: -88 INTERPRETIVE STATEMENTS: Sinus tachycardia with occasional premature ventricular complexes Possible Anterior infarct, age undetermined Marked ST abnormality, possible inferior subendocardial injury Abnormal ECG No previous ECG available for comparison Electronically Signed On 09-19-22 14:01:45 UPSETTER SETTER UP by Chico Wilson
--- NOTE | 2022-09-19 14:05 | EKG ---
Test Date: 2022-09-14 Test Time: 03:37:06 Money Market Dealer: DAJUAN MEASUREMENT RESULTS: Intervals: Rate: 107 LA: 154 QRSD: 108 QT: 374 QTc: 499 [place]: P: 67 LA: 154 QRS: 53 T: -59 INTERPRETIVE STATEMENTS: Sinus tachycardia Anterior infarct, age undetermined Marked ST abnormality, possible inferior subendocardial injury Abnormal ECG Compared to ECG 09/14/2022 02:29:21 Ventricular premature complex(es) no longer present Myocardial infarct finding still present ST (T wave) deviation still present Electronically Signed On 09-19-22 14:01:31 HAZARDOUS SUBSTANCES ENGINEER by Chico Wilson
== END 2022-09-15 18:12 | disposition home or self-care (01) | DRG 246 ==
LOC: ER 01:39 → ERHOLD 03:58 → 4TH 12:59
PROVIDERS: ADMIT Internal Medicine; ATTEND Internal Medicine
PROC: 027035Z Dilation of Coronary Artery, One Artery with Two Drug-eluting Intraluminal Devices, Percutaneous Approach (ICD-10-PCS; principal; 2022-09-14)
PROC: 4A023N7 Measurement of Cardiac Sampling and Pressure, Left Heart, Percutaneous Approach (ICD-10-PCS; 2022-09-14)
PROC: B205YZZ Plain Radiography of Left Heart using Other Contrast (ICD-10-PCS; 2022-09-14)
PROC: B201YZZ Plain Radiography of Multiple Coronary Arteries using Other Contrast (ICD-10-PCS; 2022-09-14)
DX: I21.4 Non-ST elevation (NSTEMI) myocardial infarction (principal); I50.21 Acute systolic (congestive) heart failure; I48.92 Unspecified atrial flutter; I25.10 Atherosclerotic heart disease of native coronary artery without angina pectoris; I25.82 Chronic total occlusion of coronary artery; E78.5 Hyperlipidemia, unspecified; R73.9 Hyperglycemia, unspecified; I48.91 Unspecified atrial fibrillation; I95.9 Hypotension, unspecified; I34.0 Nonrheumatic mitral (valve) insufficiency; I25.2 Old myocardial infarction; D72.829 Elevated white blood cell count, unspecified; F17.210 Nicotine dependence, cigarettes, uncomplicated; Z88.0 Allergy status to penicillin; Z20.822 Contact with and (suspected) exposure to COVID-19; Z80.9 Family history of malignant neoplasm, unspecified
CPT/HCPCS: 36415; 71045; 76937; 80048; 80061; 80076; 80307; 81003; 82550; 82553; 83735; 83880; 84100; 84132; 84443; 84484; 85025; 85347; 85610; 87811; 92928; 92929; 93005; 93306; 93458; 96361; 96372; 96374; 96375; 99285; C1725; C1887; C1893; G0269; J0461; J1644; J1650; J1940; J2250; J2270; J2405; J3010; J7030; J7040; Q9967